=== PATIENT | male | born 2000 | race African-American/Black ===

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

== ENCOUNTER 2021-07-14 06:35 | Emergency (ER) | payer OTHER ==
[~2021-07-14] VITALS: Ht 170.2 cm; Wt 77.3 kg
[2021-07-14 06:36] VITALS: BP 133/64
[2021-07-14] MEDS ORDERED: PROPARACAINE 0.5% OPHTH SOL 15ML OS ONE (07:45)
[2021-07-14] MEDS ORDERED: FLUORESCEIN OPHTH 1 MG STRIP OS ONE (07:45)
[2021-07-14] MEDS ORDERED: POLYSOL OP (08:14)
== END 2021-07-14 08:28 | disposition home or self-care (01) ==
LOC: M ED 06:35
DX: H10.32 Unspecified acute conjunctivitis, left eye (principal)